=== PATIENT | female | born 1990 | race Caucasian/White ===

== ENCOUNTER 2016-12-24 21:21 | Emergency (ER) | payer SELFPAY ==
[2016-12-24 21:22] VITALS: BMI 21.7
--- NOTE | 2016-12-24 23:07 | C.PDOC ---
History Of Present Illness Patient presents to the ER with a complaint of chest pain and SOB since yesterday. Patient also reports feeling like she had a lump in her throat but notes the feeling has resolved now. Patient is speaking in complete sentences and tolerating PO. Patient also notes she is currently on control and is a nonsmoker. Denies fever, chills, nausea or vomiting. Time Seen by Provider: 12/24/16 23:07 Chief Complaint (Nursing): Chest Pain History Per: Patient History/Exam Limitations: no limitations Onset/Duration Of Symptoms: Hrs Current Symptoms Are (Timing): Still Present Severity: Moderate Pain Scale Rating Of: 4 Associated Symptoms: denies: Nausea, Other (Vomiting, Fever, Chills) Modifying Factors: None Exacerbating Factors: None Recent travel outside of the [place]: No Past Medical History Reviewed: Historical Data, Nursing Documentation, Vital Signs Vital Signs: Last Vital Signs Temp 97.8 F 12/24/16 22:55 Pulse 76 12/24/16 22:55 Resp 18 12/24/16 22:55 BP 102/70 12/24/16 22:55 Pulse Ox 100 12/24/16 23:37 - Medical History PMH: No Chronic Diseases Surgical History: No Surg Hx Family History: States: No Known Family Hx - Social History Hx Tobacco Use: No Hx Alcohol Use: No Hx Substance Use: No - Immunization History Hx Tetanus Toxoid Vaccination: No Hx Influenza Vaccination: Yes Hx Pneumococcal Vaccination: No Review Of Systems Constitutional: Negative for: Fever, Chills Cardiovascular: Positive for: Chest Pain Respiratory: Positive for: Shortness of Breath Gastrointestinal: Negative for: Nausea, Vomiting Physical Exam - Physical Exam Appears: Non-toxic Skin: Warm, Dry Oral Mucosa: Moist Chest: Symmetrical, No Tenderness Cardiovascular: Rhythm Regular, No Murmur Respiratory: No Rales, No Rhonchi, No Wheezing Gastrointestinal/Abdominal: Soft, No Tenderness Neurological/Psych: Oriented x3 ED Course And Treatment - Laboratory Results Result Diagrams: 12/24/16 23:31 12/24/16 23:31 ECG: Interpreted By Me, Viewed By Me ECG Rhythm: Sinus Rhythm (75), Nonspecific Changes O2 Sat by Pulse Oximetry: 100 Pulse Ox Interpretation: Normal Progress Note: EKG, blood work and urinalysis ordered. Ecotrin administered. Reevaluation Time: 00:40 Reassessment Condition: Improved Medical Decision Making Medical Decision Making: I considered the following diagnoses: acute coronary syndrome, pulmonary embolism, lower respiratory infection, aortic dissection/aneurysm, pneumothorax , pericarditis, esophagitis/GERD, zoster and esophageal rupture but found them to be unlikely based on the history, physical exam, and diagnostics. My conclusions regarding the unlikely diagnoses were based on: the absence of significant EKG abnormalities, the lack of suggestive x-ray findings, the absence of significant abnormalities on cardiac monitoring, the absence of asymmetric pulses. Pt feels fine, no chest pain, wants to go home Upon provider reevaluation patient is feeling better, is medically stable, and requires no further treatment in the ED at this time. Patient will be discharged home with Rx for protonix . Counseling was provided and all questions were answered regarding diagnosis and need for follow up with the referred clinic. There is agreement to discharge plan. Return if symptoms persist or worsen. Disposition Counseled Patient/Family Regarding: Studies Performed, Diagnosis, Need For Followup, Rx Given - Disposition Referrals: [facility] [Outside] [facility] [Outside] Disposition: HOME/ ROUTINE Disposition Time: 23:07 Condition: FAIR Prescriptions: Pantoprazole Sodium [Protonix] 20 mg PO DAILY #14 ect Instructions: Gastroesophageal Reflux Disease (ED), Chest Pain (DC) - Clinical Impression Clinical Impression: Chest pain, GERD (gastroesophageal reflux disease) - Scribe Statement The provider has reviewed the documentation as recorded by the Scribzita Gomez All medical record entries made by the Scribe were at my direction and personally dictated by me. I have reviewed the chart and agree that the record accurately reflects my personal performance of the history, physical exam, medical decision making, and the department course for this patient. I have also personally directed, reviewed, and agree with the discharge instructions and disposition.
[2016-12-24] MEDS ORDERED: Aspirin 325 mg EC Tablets PO STA (23:13)
[2016-12-24 23:35] LABS: BASO % 0.5 % (0.0-2.0); EOS # 0.2 K/uL (0.0-0.7); EOS % 2.7 % (0.0-4.0); HEMATOCRIT 35.2 % (34.0-47.0); LYMPH # 4.1 K/uL (1.0-4.3); LYMPH % 45.1 % (20.0-40.0); MEAN CELL VOLUME 81.7 fL (81.0-99.0); MEAN CORPUSCULAR HEMOGLOBIN 27.6 pg (27.0-31.0); MEAN CORPUSCULAR HGB CONC 33.7 g/dL (33.0-37.0); MEAN PLATELET VOLUME 8.2 fL (7.2-11.7); MONO # 0.6 K/uL (0.0-0.8); MONO % 6.4 % (0.0-10.0); NRBC % 0.1 % (0.0-2.0); RED CELL DISTRIBUTION WIDTH 12.7 % (11.5-14.5)
[2016-12-24] MEDS ORDERED: Aspirin 325 mg EC Tablets PO ONE (23:36)
[2016-12-24 23:37] LABS: RBC URINE < 1 /hpf (0-3); URINE BILIRUBIN NEGATIVE (NEGATIVE); URINE BLOOD NEGATIVE (NEGATIVE); URINE COLOR Straw (YELLOW); URINE GLUCOSE (UA) NORMAL (Normal); URINE KETONE NEGATIVE (NEGATIVE); URINE LEUKOCYTE ESTERASE NEG Leu/uL (Negative); URINE PROTEIN NEGATIVE (NEGATIVE); URINE UROBILINOGEN NORMAL mg/dL (0.2-1.0); WBC URINE < 1 /hpf (0-5)
[2016-12-24 23:44] LABS: CHLORIDE 103 mmol/L (98-107); INR 1.1; PARTIAL THROMBOPLASTIN TIME 31 SECONDS (21-34)
[2016-12-24 23:45] LABS: SODIUM 137 mmol/L (132-148)
[2016-12-24 23:47] LABS: ALB/GLOB RATIO 1.1 (1.0-2.1); ALKALINE PHOSPHATASE 94 U/L (38-126); AST/SGOT 20 U/L (14-36); BILIRUBIN,TOTAL 0.6 mg/dL (0.2-1.3); CARBON DIOXIDE 25 mmol/L (22-30); GFR AFRICAN-AMERICAN > 60; TOTAL PROTEIN 7.6 g/dL (6.3-8.3)
[2016-12-24 23:48] LABS: ALT/SGPT 18 U/L (9-52); BLOOD UREA NITROGEN 9 mg/dL (7-17); CALCIUM 9.3 mg/dl (8.6-10.4); GLUCOSE,RANDOM 83 mg/dL (65-105)
[2016-12-25 01:11] VITALS: BP 115/60; PULSE 74; RESP 20; TEMP 98.5; O2SAT 99
--- NOTE | 2016-12-26 14:24 | CARD ---
APPROVED REPORT EKG Measurement Heart [id number] <Conclusion> Normal sinus rhythm Normal ECG
== END 2016-12-25 01:10 | disposition home or self-care (01) ==
LOC: C.ER 21:21
DX: K21.9 Gastro-esophageal reflux disease without esophagitis (principal); R07.9 Chest pain, unspecified
CPT/HCPCS: 80053; 81001; 84484; 84703; 85025; 85378; 85610; 85730; 93005; 99283; G0480

== ENCOUNTER 2017-03-19 22:09 | Emergency (ER) | payer SELFPAY ==
[2017-03-19 22:09] VITALS: BMI 21.7
[2017-03-19 22:38] VITALS: BP 100/66; PULSE 74; RESP 16; TEMP 98.3; O2SAT 100
--- NOTE | 2017-03-19 22:47 | C.PDOC ---
History Of Present Illness 26-year-old female presents to the ED for evaluation of sore throat for 5 days and left ear pain for 3 days. Patient denies fever, cough, and difficulty swallowing. Time Seen by Provider: 03/19/17 22:41 Chief Complaint (Nursing): ENT Problem History Per: Patient History/Exam Limitations: None Onset/Duration Of Symptoms: Days Current Symptoms Are (Timing): Still Present Quality (Ear): Pain W/Touch Past Medical History Reviewed: Historical Data, Nursing Documentation, Vital Signs Vital Signs: Last Vital Signs Temp 98.3 F 03/19/17 22:32 Pulse 74 03/19/17 22:32 Resp 16 03/19/17 22:32 BP 100/66 03/19/17 22:32 Pulse Ox 100 03/20/17 15:34 - Medical History PMH: No Chronic Diseases Surgical History: No Surg Hx Family History: States: Unknown Family Hx - Social History Hx Tobacco Use: No Hx Alcohol Use: No Hx Substance Use: No - Immunization History Hx Tetanus Toxoid Vaccination: No Hx Influenza Vaccination: Yes Hx Pneumococcal Vaccination: No Review Of Systems Constitutional: Negative for: Fever ENT: Positive for: Ear Pain (left), Throat Pain Respiratory: Negative for: Cough Physical Exam - Physical Exam Appears: Non-toxic, No Acute Distress Skin: Normal Color, Warm, Dry Head: Atraumatic, Normacephalic Eye(s): bilateral: Normal Inspection, EOMI Ear(s): Bilateral: Normal Nose: Normal, No Discharge Oral Mucosa: Moist Throat: Erythema, No Exudate Neck: Normal ROM, Supple Lymphatic: Normal Exam, No Adenopathy Chest: Symmetrical, No Deformity, No Tenderness Cardiovascular: Rhythm Regular, No Murmur Respiratory: Normal Breath Sounds, No Rales, No Rhonchi, No Wheezing Extremity: Normal ROM, No Deformity, No Swelling Neurological/Psych: Oriented x3, Normal Speech Gait: Steady ED Course And Treatment O2 Sat by Pulse Oximetry: 100 (on RA) Pulse Ox Interpretation: Normal Medical Decision Making Medical Decision Making: Impression: 26-year-old female with throat and left ear pain Progress: On reassessment, patient is resting comfortably, showing no signs of distress and is stable for discharge. Patient is advised to follow up with her PMD/ clinic within a timely manner for further evaluation. Disposition Counseled Patient/Family Regarding: Diagnosis, Need For Followup, Rx Given - Disposition Referrals: [facility] [Outside] [facility] [Outside] Disposition: HOME/ ROUTINE Disposition Time: 22:45 Condition: STABLE Additional Instructions: Take Tylenol or Motrin alternating every 4-6 hours for Fever 100.4F or higher. Rest and drink plenty of fluids to prevent dehydration. Take antibiotic twice a day for one week. Follow up in clinic or with your doctor Prescriptions: Amoxicillin [Amoxil 500 mg Cap] 500 mg PO BID #14 cap Benzocaine/Menthol [Cepacol Sore Throat] 1 sonia MM Q2 #30 sonia Instructions: Pharyngitis (ED) Forms: [employer] (Upper Sorbian) Print Language: MALAGASY - POA Present On Arrival: None - Clinical Impression Clinical Impression: Pharyngitis - PA / REEL HOOKER / Resident Statement MD/DO has reviewed & agrees with the documentation as recorded. - Scribe Statement The provider has reviewed the documentation as recorded by the Scribe (Kelsie Forrest) All medical record entries made by the Scribe were at my direction and personally dictated by me. I have reviewed the chart and agree that the record accurately reflects my personal performance of the history, physical exam, medical decision making, and the department course for this patient. I have also personally directed, reviewed, and agree with the discharge instructions and disposition.
== END 2017-03-19 23:00 | disposition home or self-care (01) ==
LOC: C.ER 22:09
DX: J02.9 Acute pharyngitis, unspecified (principal)

== ENCOUNTER 2017-08-08 21:08 | Emergency (ER) | payer OTHER ==
[2017-08-08 21:08] VITALS: BMI 21.7
[2017-08-08 21:33] VITALS: BP 106/71; PULSE 67; RESP 18; TEMP 98.5; O2SAT 100
--- NOTE | 2017-08-08 21:54 | C.PDOC ---
History Of Present Illness 27 yo female w/o significant PMHx come in for evaluation of B/L breast pain gradually developed for past 5 days. Pt reports, pain is on sides of breast, reproducible. Otherwise, pt denies breast feeding, , denies known trauma or injury, fever, chills, skin changes, nipple discharges, denies FHx of breast ca. Ambulate to Ed for evaluation, not in any apparent distress. Time Seen by Provider: 08/08/17 21:35 Chief Complaint (Nursing): Breast Problem History Per: Patient Onset/Duration Of Symptoms: Gradual Past Medical History Reviewed: Historical Data, Nursing Documentation, Vital Signs Vital Signs: Last Vital Signs Temp 98.5 F 08/08/17 21:30 Pulse 67 08/08/17 21:30 Resp 18 08/08/17 21:30 BP 106/71 08/08/17 21:30 Pulse Ox 100 08/08/17 21:30 - Medical History PMH: No Chronic Diseases Surgical History: No Surg Hx Family History: States: No Known Family Hx - Social History Hx Tobacco Use: No Hx Alcohol Use: No Hx Substance Use: No - Immunization History Hx Tetanus Toxoid Vaccination: No Hx Influenza Vaccination: No Hx Pneumococcal Vaccination: No Review Of Systems Except As Marked, All Systems Reviewed And Found Negative. Constitutional: Negative for: Fever, Chills ENT: Negative for: Ear Discharge, Nose Discharge, Mouth Pain, Throat Pain, Throat Swelling Cardiovascular: Negative for: Chest Pain, Palpitations Respiratory: Negative for: Cough, Shortness of Breath, Wheezing Gastrointestinal: Negative for: Nausea, Vomiting, Abdominal Pain Genitourinary: Negative for: Dysuria, Frequency, Incontinence, Vaginal Discharge , Vaginal Bleeding Musculoskeletal: Negative for: Neck Pain, Back Pain Skin: Negative for: Rash Neurological: Negative for: Weakness, Numbness, Altered Mental Status, Headache , Dizziness Physical Exam - Physical Exam Appears: Well, Non-toxic, No Acute Distress Skin: Normal Color, Warm, Dry, No Rash Head: Normacephalic Eye(s): bilateral: PERRL Ear(s): Bilateral: Normal Nose: No Flaring, No Discharge Oral Mucosa: Moist, No Drooling Throat: No Erythema Neck: Trachea Midline, Supple Lymphatic: No Axilla Node Tenderness (B/L) Chest: Other (B/L mild breast tenderness over lateral spect at 9 o'clock. No skin changes, no palpable masses, no nipple discharge or changed.) Cardiovascular: Rhythm Regular, No Murmur, No JVD Respiratory: No Decreased Breath Sounds, No Accessory Muscle Use, No Stridor, No Wheezing Gastrointestinal/Abdominal: Soft, No Tenderness, No Distention, No Guarding Back: No CVA Tenderness Extremity: Normal ROM, No Deformity, No Swelling Neurological/Psych: Oriented x3, Normal Speech ED Course And Treatment O2 Sat by Pulse Oximetry: 100 Pulse Ox Interpretation: Normal Progress Note: On re-eval, pt is awake,alert, not in any apparent distress. Non -toxic. Tolerate Po well in ED. PulseOx 100% RA. ENT: no acute findings. neck : Supple, (-) meningeal sign. Lungs: CTA B/L, BS equal B/L. CVS: (+)S1S2, reg. Abd: benign. Breast: no acute findings B/L. Pt advised and ref. to F/u with PMD, DIETARY SERVICES MANAGER in 2-3 days for re-eval. return if any new changes. Disposition Counseled Patient/Family Regarding: Diagnosis, Need For Followup, Rx Given - Disposition [facility]] Disposition: HOME/ ROUTINE Disposition Time: 21:51 Condition: STABLE Additional Instructions: CONSIDER TO CHANGE BRA TO SPORT ONE IBUPROFEN NEED FOR PAIN FOLLOW UP WITH PMD, DIETARY SERVICES MANAGER IF PAIN CONTINUOS FOR FURTHER EVALUATION AND MAMMOGRAM RETURN TO ED IF ANY NEW CHANGES. Instructions: Breast Care for the Non-breast Feeding Woman (ED) - Clinical Impression Clinical Impression: Pain of breast
== END 2017-08-08 22:15 | disposition home or self-care (01) ==
LOC: C.ER 21:08
DX: N64.4 Mastodynia (principal)

== ENCOUNTER 2017-09-01 21:42 | Emergency (ER) | payer OTHER, SELFPAY ==
[2017-09-01 21:42] VITALS: BMI 21.7
[2017-09-01 22:33] VITALS: BP 119/76; PULSE 75; RESP 16; TEMP 98.4; O2SAT 98
--- NOTE | 2017-09-02 | C.PDOC ---
History Of Present Illness 27yo female, presents to ER for evaluation of right breast pain. Patient was seen in this facility on Aug 08 and was evaluated for similar complaints, was informed to follow up with clinic and get a mammogram. Patient states she called the clinic and was told by receptionists she was "too young for a mammogram" adn that she needed a prescription requiring the exam. Patient presents to ER today requesting prescription for the mammogram. She reports pain is continued but better than before; states she is concerned as her aunt had a history of breast cancer. She denies any skin changes or nipple discharge. No other complaints. Time Seen by Provider: 09/01/17 22:36 Chief Complaint (Nursing): Breast Problem History Per: Patient History/Exam Limitations: no limitations Onset/Duration Of Symptoms: Persistent Current Symptoms Are (Timing): Still Present Past Medical History Reviewed: Historical Data, Nursing Documentation, Vital Signs Vital Signs: Last Vital Signs Temp 98.4 F 09/01/17 22:29 Pulse 75 09/01/17 22:29 Resp 16 09/01/17 22:29 BP 119/76 09/01/17 22:29 Pulse Ox 98 09/02/17 00:00 - Medical History PMH: No Chronic Diseases, Chronic Kidney Disease Surgical History: No Surg Hx Family History: States: Unknown Family Hx, Other Other Family History: Aunt with breast cancer - Social History Hx Tobacco Use: No Hx Alcohol Use: No Hx Substance Use: No - Immunization History Hx Tetanus Toxoid Vaccination: No Hx Influenza Vaccination: No Hx Pneumococcal Vaccination: No Review Of Systems Except As Marked, All Systems Reviewed And Found Negative. Constitutional: Negative for: Fever, Chills Musculoskeletal: Positive for: Other (right breast pain) Physical Exam - Physical Exam Appears: Non-toxic, No Acute Distress Skin: Normal Color, Warm, Dry Head: Normacephalic Eye(s): bilateral: Normal Inspection Chest: Symmetrical, Other (bilateral breasts symmetrical; no breast tenderness, skin changes, nipple retraction, erythema or palpable mass.) Cardiovascular: Rhythm Regular Respiratory: Normal Breath Sounds Neurological/Psych: Oriented x3, Normal Speech, Normal Cognition ED Course And Treatment O2 Sat by Pulse Oximetry: 98 (RA) Pulse Ox Interpretation: Normal Progress Note: Patient instructed to follow up with medical clinic in 1-2 days for re-evaluation. Stable for discharge home. Disposition Counseled Patient/Family Regarding: Diagnosis, Need For Followup - Disposition Referrals: [facility] [Outside] Disposition: HOME/ ROUTINE Disposition Time: 23:58 Condition: STABLE Additional Instructions: PLEASE FOLLOW UP IN MEDICAL CLINIC FOR FURTHER EVALUATION TYLENOL OR ADVIL IF PAIN RETURN TO ER IF WORSE Instructions: Mastalgia (DC) Forms: [employer] (Irish) - Clinical Impression Clinical Impression: Pain of breast - PA / TAX PROCESSOR / Resident Statement MD/DO has reviewed & agrees with the documentation as recorded. - Scribe Statement The provider has reviewed the documentation as recorded by the Scribe (Shyann Carlson) Provider Scribe Attestation: All medical record entries made by the Scribe were at my direction and personally dictated by me. I have reviewed the chart and agree that the record accurately reflects my personal performance of the history, physical exam, medical decision making, and the department course for this patient. I have also personally directed, reviewed, and agree with the discharge instructions and disposition.
== END 2017-09-02 00:01 | disposition home or self-care (01) ==
LOC: C.ER 21:42
DX: N64.4 Mastodynia (principal)

== ENCOUNTER 2018-10-01 13:56 | Outpatient (CLI) | payer MEDICAID | END 2018-10-01 13:57 | disposition home or self-care (01) | LOC: C.USIC 13:56 ==